=== PATIENT | female | born 1960 | race Two or more races ===

== ENCOUNTER 2022-09-05 14:12 | Emergency (ER) | payer MEDICAID ==
[~2022-09-05] VITALS: Ht 149.9 cm; Wt 80.1 kg
[2022-09-05] MEDS ORDERED: HYDROcodone-ACET 10/325MG TAB PO ONE (16:15)
[2022-09-05] MEDS ORDERED: IBUP800T27 PO (17:29)
[2022-09-05] MEDS ORDERED: CYCL-839 PO (17:29)
[2022-09-05 18:16] VITALS: BP 175/77
== END 2022-09-05 18:17 | disposition home or self-care (01) ==
LOC: ER 14:12
DX: S33.5XXA Sprain of ligaments of lumbar spine, initial encounter (principal); M47.817 Spondylosis without myelopathy or radiculopathy, lumbosacral region; I10 Essential (primary) hypertension; M54.2 Cervicalgia; M79.18 Myalgia, other site; Z88.1 Allergy status to other antibiotic agents; X58.XXXA Exposure to other specified factors, initial encounter; Y93.89 Activity, other specified; Y92.89 Other specified places as the place of occurrence of the external cause; Y99.8 Other external cause status
CPT/HCPCS: 70450; 72125; 72131

== ENCOUNTER 2022-09-16 19:54 | Emergency (ER) | payer MEDICAID ==
[~2022-09-16] VITALS: Ht 149.9 cm; Wt 80.1 kg
[~2022-09-16 19:54] MED LIST: CYCL-839 PO; IBUP800T27 PO
[2022-09-16] MEDS ORDERED: hydrALAZINE HCL 20 MG/ML VL IV ONE (20:30)
[2022-09-16 21:52] LABS: Basophils # (auto) 0.1 10 ^3/uL (0-0.2); Basophils % (auto) 0.5 % (0.0-2.0); Eosinophils # (auto) 0.3 10 ^3/uL (0-0.8); Eosinophils % (auto) 2.9 % (0.0-7.0); Hematocrit 37.9 % (36.0-46.0); Lymphocytes # (auto) 4.2 10 ^3/uL (0.4-5.4); Lymphocytes % (auto) 37.7 % (10.0-50.0); Mean Corpuscular Hemoglobin 29.9 pg (28.0-32.0); Mean Corpuscular Hgb Conc. 34.2 g/dL (32.0-36.0); Mean Corpuscular Volume 87.3 fL (80.0-100.0); Monocytes # (auto) 0.6 10 ^3/uL (0-1.3); Monocytes % (auto) 5.5 % (0.0-12.0); Neutrophils % (auto) 53.4 % (37.0-80.0); Nucleated Red Blood Cells % 0.2 %; Red Blood Cells 4.34 10^6/uL (4.0-5.20); Red Cell Distribution Width 13.8 % (11.8-14.3); White Blood Cell 11.3 10^3/uL (4.4-10.8)
[2022-09-16 22:05] LABS: Albumin 3.6 g/dL (3.4-5.0); Calcium 9.1 mg/dL (8.5-10.1); Potassium 3.8 mmol/L (3.5-5.1)
[2022-09-16 22:06] LABS: BUN/Creatinine Ratio 17.4 (10.0-20.0)
[2022-09-16 22:08] LABS: Bilirubin, Total 0.3 mg/dL (0.2-1.0); Total Protein 7.6 g/dL (6.4-8.2)
[2022-09-16 22:55] LABS: Urine Bacteria NONE SEEN /hpf (None Seen); Urine Blood Negative /uL (Negative); Urine Specific Gravity 1.009 (1.001-1.035); Urine WBC <1 /hpf (0 - 5)
[2022-09-17] VITALS: BP 177/87
[2022-09-17] MEDS ORDERED: AML5T PO (01:06)
== END 2022-09-17 01:34 | disposition home or self-care (01) ==
LOC: ER 19:54
DX: I10 Essential (primary) hypertension (principal); R51.9 Headache, unspecified; Z20.822 Contact with and (suspected) exposure to COVID-19; Z88.1 Allergy status to other antibiotic agents
CPT/HCPCS: 36415; 70450; 71045; 80053; 81001; 83880; 84484; 85025; 87426; 87804; 93005; 96374; 99285; J0360

== ENCOUNTER 2024-08-06 00:58 | Emergency (ER) | payer MEDICAID ==
[~2024-08-06] VITALS: Ht 152.4 cm; Wt 91.4 kg
[~2024-08-06 00:58] MED LIST changes: +AML5T PO; +IBUP-1456 PO; -IBUP800T27 PO
--- NOTE | 2024-08-06 01:20 | ED.PDOC ---
History of Present Illness HPI Comments 64-year-old female who came to ER for high blood pressure. Patient has history of hypertension and dyslipidemia. Patient states she is normally medication compliant, but the past few days she has not been compliant due to familial concerns. Complaining of headaches and dizziness. Denies any chest pains. U mitzi arrival blood pressure was 218/108 mm Hg Chief Complaint: High Blood Pressure Time Seen by MD: 01:20 Reviewed Notes: Nurses Notes Allergies: Coded Allergies: Azithromycin (Verified Allergy, Unknown, 09/05/22) Home Meds Active Scripts Clonidine Hydrochloride (Clonidine Hcl) 0.2 Mg Tab, 1 TAB PO BIDP PRN, #20 TAB 0 Refills To be used if systolic pressures above 160 or diastolic pressures above 90. Prov:RADHA SANCHEZ PAC 08/06/24 Amlodipine Besylate (NORVASC TABLET) 5 Mg Tb, 1 TAB PO DAILY, #15 TAB 5 Refills Prov:LASHAUN CHILDERS MATERIAL EXPEDITOR 09/17/22 Cyclobenzaprine Hcl (Cyclobenzaprine Hcl) 10 Mg Tab, 10 MG PO TID for 10 Days, #30 TAB Prov:ALEX MARIN CUSTOMER SERVICE ADVISOR 09/05/22 Ibuprofen (Ibuprofen) 800 Mg Tab, 1 TAB PO TID, #30 TAB Prov:ALEX MARIN CUSTOMER SERVICE ADVISOR 09/05/22 Information Source: Patient Mode of Arrival: Ambulatory Severity: Moderate Timing: Days Duration: Intermittent Prehospital treatment: None Past Medical History PAST MEDICAL HISTORY: High Lipids, HTN Surgical History: Denies all surgeries B OPERATOR History: Denies all B OPERATOR Hx Family History Family History: Reviewed,noncontributory to illness Social History Smoker: Non-Smoker Alcohol: Rarely Drugs: Denies Drug Use Lives In: Home Constitutional: denies: chills, diaphoresis, fatigue, fever, malaise, sweats, weakness, others EENTM: denies: blurred vision, double vision, ear bleeding, ear discharge, ear drainage, ear pain, ear ringing, eye pain, eye redness, hearing loss, mouth pain, mouth swelling, nasal discharge, nose bleeding, nose congestion, nose pain, photophobia, tearing, throat pain, throat swelling, voice changes, others Respiratory: denies: cough, hemoptysis, orthopnea, SOB at rest, shortness of breath, SOB with excertion, stridor, wheezing, others Cardiovascular: denies: chest pain, dizzy spells, diaphoresis, Dyspnea on exertion, edema, irregular heart beat, left arm pain, lightheadedness, palpitations, PND, syncope, others Gastrointestinal: denies: abdomen distended, abdominal pain, blood streaked bowels, constipated, diarrhea, dysphagia, difficulty swallowing, hematemesis, melena, nausea, poor appetite, poor fluid intake, rectal bleeding, rectal pain, vomiting, others Genitourinary: denies: abnormal vagina bleeding, burning, dyspareunia, dysuria, flank pain, frequency, hematuria, incontinence, pain, , vagina discharge, urgency, others Neurological: reports: dizziness, headache; denies: fainting, left sided numbness, left sided weakness, numbness, paresthesia, pre-existing deficit, right sided numbness, right sided weakness, seizure, speech problems, tingling, tremors, weakness, others Musculoskeletal: denies: back pain, gout, joint pain, joint swelling, muscle pain, muscle stiffness, neck pain, others Integumetry: denies: bruises, change in color, change in hair/nails, dryness, laceration, lesions, lumps, rash, wounds, others Allergic/Immunocompromised: denies: Difficulty Healing, Frequent Infections, Hives, Itching, others Hematologic/Lymphatic: denies: anemia, blood clots, easy bleeding, easy bruising, swollen glands, others Endocrine: denies: excessive hunger, excessive sweating, excessive thirst, excessive urination, flushing, intolerance to cold, intolerance to heat, unexplained weight gain, unexplained weight loss, others Psychiatric: denies: anxiety, bipolar disorder, depression, hopeless, panic disorder, schizophrenia, sleepless, suicidal, others Physical Exam General Appearance: Mild Distress (Moderate distress due to a mild headache and very mild dizziness concerns.), Normal HEENT: Head (Unremarkable cranial evaluation. No signs of trauma. No skull depressions or deformities.), Normal ENT Inspection, Pharynx Normal, TMs Normal Neck: Full Range of Motion, Non-Tender, Normal, Normal Inspection Respiratory: Chest Non-Tender, Lungs Clear, No Accessory Muscle Use, No Respiratory Distress, Normal Breath Sounds Cardiovascular: No Edema, No JVD, No Murmur, No Gallop, Normal Peripheral Pulses, Regular Rate/Rhythm Breast Exam: Deferred Gastrointestinal: No Organomegaly, Non Tender, No Pulsatile Mass, Normal Bowel Sounds, Soft Genitalia: Deferred Pelvic: Deferred Rectal: Deferred Extremities: No calf tenderness, Normal capillary refill, Normal inspection, Normal range of motion, Non-tender, No pedal edema Musculoskeletal : Apperance: Normal Neurologic: Alert, No Motor Deficits, Normal Affect, Normal Mood, No Sensory Deficits Cerebellar Function: Normal Reflexes: Normal Skin: Dry, Normal Color, Warm Lymphatic: No Adenopathy Was a procedure done? Was a procedure done?: No Differential Dx Considerations may include: Hypertensive urgency, anxiety X-Ray, Labs, Meds, VS Comment Patient responded well to medication dispensed. Advised patient to always use her blood pressure medication as directed. I will send the patient home with some emergent blood pressure medication, but she should follow up with the primary care provider for conversation is related to healthy blood pressure management. At time of discharge, patient stated she had urinary complaints as well. Urinalysis has been ordered and patient care will be transferred to Dr. Martin for evaluation of those results when returned. Time of 1ST Reevaluation: 01:40 Reevaluation 1ST: Improved Consultation: PCP, Cardiology Patient Education/Counseling: Diagnosis, Treatment Family Education/Counseling: Diagnosis, Treatment, No Family Present Departure 1 Departure Time of Disposition: 01:40 Impression: Primary Impression: Hypertension Disposition: 01 HOME / SELF CARE / HOMELESS Condition: Stable Additional Instructions: Advised patient to always utilize her blood pressure medication as directed by her primary care provider. Utilize emergent medication as needed. Follow up with the primary care provider for discussions related to improved blood pressure management. e-Prescriptions Clonidine Hydrochloride (Clonidine Hcl) 0.2 Mg Tab 1 TAB PO BIDP PRN, #20 TAB 0 Refills To be used if systolic pressures above 160 or diastolic pressures above 90. Prov: RADHA SANCHEZ PAC 08/06/24 Discharged With: Self, Friend Critical Care Note Critical Care Time?: No Stability Stability form required: No Heart Score Heart Score: Heart Score Response (Comments) Value History N/A 0 EKG N/A 0 Age N/A 0 Risk Factors N/A 0 Troponin N/A 0 Total 0 I personally scribed for RADHA SANCHEZ PAC ([email or web address]) on 08/06/24 at 01:20. Electronically submitted by Rob Subramanian ([facility]). RADHA SANCHEZ PAC Aug 06, 2024 01:20
[2024-08-06] MEDS ORDERED: CLON0.2T PO (01:41)
[2024-08-06] MEDS: cloNIDine HCL 0.1 MG TAB PO ONE (01:50)
[2024-08-06 02:06] LABS: Urine Bacteria None Seen /hpf (None Seen)
[2024-08-06 02:20] LABS: Urine Blood Negative /uL (Negative); Urine Clarity Clear (Clear); Urine Color Colorless (Yellow); Urine Protein, UAD Negative (Negative); Urine Specific Gravity 1.008 (1.001-1.035); Urine Squamous Epithelial Cell FEW /hpf (<5); Urine Urobilinogen Normal (Negative); Urine pH 6.5 (5.0-9.0)
[2024-08-06 03:03] VITALS: BP 102/60; PULSE 68; RESP 20; TEMP 98; O2SAT 98
== END 2024-08-06 03:17 | disposition home or self-care (01) ==
LOC: ER 00:58
DX: I10 Essential (primary) hypertension (principal); E78.5 Hyperlipidemia, unspecified; Z88.1 Allergy status to other antibiotic agents; Z79.899 Other long term (current) drug therapy
CPT/HCPCS: 81001

== ENCOUNTER 2024-10-20 10:46 | Emergency (ER) | payer MEDICAID ==
[~2024-10-20] VITALS: Ht 152.4 cm; Wt 89.6 kg
[~2024-10-20 10:46] MED LIST changes: +CLON0.2T PO
--- NOTE | 2024-10-20 11:51 | DVH ---
CHEST RADIOGRAPH Indication: cp, htn Technique: Single frontal view of the chest was obtained COMPARISON: XY CHEST XRAY 1 VIEW on DOS: 09/16/22 FINDINGS: Lines and Tubes: None Lungs: Clear Pleura: No effusion. No pneumothorax. Cardiomediastinal contours: Unremarkable Bones: Unremarkable IMPRESSION: No acute disease.
[2024-10-20 12:14] LABS: Basophils # (auto) 0.1 10 ^3/uL (0-0.2); Basophils % (auto) 0.8 % (0.0-2.0); Eosinophils # (auto) 0.2 10 ^3/uL (0-0.8); Eosinophils % (auto) 1.6 % (0.0-7.0); Hematocrit 37.8 % (36.0-46.0); Hemoglobin 12.7 g/dL (12.2-16.2); Lymphocytes # (auto) 2.6 10 ^3/uL (0.4-5.4); Lymphocytes % (auto) 21.9 % (10.0-50.0); Mean Corpuscular Hemoglobin 28.5 pg (28.0-32.0); Mean Corpuscular Hgb Conc. 33.6 g/dL (32.0-36.0); Mean Corpuscular Volume 84.7 fL (80.0-100.0); Monocytes # (auto) 0.6 10 ^3/uL (0-1.3); Monocytes % (auto) 5.2 % (0.0-12.0); Neutrophils # (auto) 8.3 10 ^3/uL (1.6-8.6); Neutrophils % (auto) 70.5 % (37.0-80.0); Platelet Count (auto) 451 10^3/uL (140-450); Red Blood Cells 4.47 10^6/uL (4.0-5.20); Red Cell Distribution Width 14.1 % (11.8-14.3); White Blood Cell 11.8 10^3/uL (4.4-10.8)
[2024-10-20 12:30] LABS: Alanine Aminotransferase 25 U/L (7-40); Albumin 4.7 g/dL (3.2-4.8); Anion Gap 8 (5-15); Aspartate Aminotransferase 15 U/L (13-40); BUN/Creatinine Ratio 14.1 (10.0-20.0); Bilirubin, Total 0.4 mg/dL (0.2-1.0); Blood Urea Nitrogen 12 mg/dL (9-23); Calcium 9.9 mg/dL (8.7-10.4); Carbon Dioxide 25 mmol/L (20-31); Chloride 105 mmol/L (98-107); Potassium 4.2 mmol/L (3.5-5.1); Sodium 138 mmol/L (136-145); Total Protein 8.1 g/dL (5.7-8.2)
[2024-10-20 12:32] LABS: Alkaline Phosphatase 137 U/L (46-116); Glucose 110 mg/dL (74-106)
--- NOTE | 2024-10-20 13:14 | ED.PDOC ---
HPI Comments Patient denies any headache, blurry vision or speech changes, facial droop, chest pain, shortness of breath, or other associated symptoms or modifying factors at this time. Vitals: temperature of 98.7F, pulse rate of 83, respiratory rate of 19, blood pressure of 133/77, and a SpO2 of 98%RA Past medical history: HTN, HLD, obesity Past surgical history: denies HPI: Poor Historian. 64-year-old female presents emergency department for evaluation of hypotensive e pisode the found at the dentist's office today on incidental check. Patient states she has some associated mild dizziness with the. Coincidentally she also voices having left shoulder pain for the last four days that is worse with certain movement of the arm. Denies any fall or trauma or injury. Her dentist office sent her here for evaluation of hypertension. Systolic blood pressure was in the 170s at the office. Patient states having history of hypertension and states compliance with her medications. REVIEW OF SYSTEMS: CONSTITUTIONAL: Denies acute: fever, diaphoresis, chills, generalized weakness. HEAD: Denies acute: headache, photophobia Eyes: Denies acute: Double vision, vision loss, eye pain, eye discharge. EARS: Denies acute: tinnitus, hearing loss, ear discharge, ear pain, THROAT: Denies acute: sore throat, swelling, difficulty swallowing , pain with swallowing, change in voice. NECK: Denies acute: neck pain, neck swelling, stiff neck. HEART: Denies acute : chest pain, palpitations, LUNGS: Denies acute: SOB, wheezing, cough, hemoptysis ABDOMEN: Denies acute: abdominal pain, Nausea, Vomiting, diarrhea, melena , hematemesis, hematochezia SKIN: Denies acute: rash, redness, lesions, itchiness. EXTREMITIES: Denies acute: calf pain, numbness, tingling, weakness, Denies acute: Low back pain. Neuro: Denies acute: focal neurological deficit, motor or sensory focal neurological deficit, tremors, seizure like activity, confusion, dizziness, change in mental status, loss of bowel or bladder function, cauda equina like symptoms. : Denies acute: dysuria, hematuria, flank pain, increase in urinary frequency. PSYCH: Denies acute: hallucination, suicidal ideation, homicidal ideation. FEMALE: Denies acute: abnormal vaginal bleeding, foul odor, unusual discharge. PHYSICAL EXAM: General: ----no----acute distress, awake and alert. Head: normocephalic, atraumatic. Neck: supple, trachea is midline, no swelling. Throat: Normal phonation. Eyes:, no erythema, no purulent discharge, no proptosis, no icterus. Heart: regular rate, regular rhythm, no significant murmur appreciated. Lungs: no apparent respiratory distress, Able to speak in full sentences. No wheezing, no rhonchi, no crackles. No stridors Clear to auscultation bilaterally. Abdomen: non tender to palpation, non distended, soft, no guarding, no rebound, + bowel sounds. Obese Neuro: Awake, Alert, oriented to name, self, situation, follows commands GCS=15. Speech is normal. Skin: no petechia, no purpura, no cyanosis, non-pale, not jaundice. Lower extremities: --no - Pitting edema no deformity, no focal swelling, no calf TTP. Makes eye contact. moves all four extremities. Face: no apparent facial droop. Ambulating in the ED independently. ED COURSE: Chief Complaint: High Blood Pressure Time Seen by MD: 11:20 Reviewed Notes: Nurses Notes, Medications, Allergies Allergies: Coded Allergies: Azithromycin (Verified Allergy, Unknown, 09/05/22) Home Meds Active Scripts Clonidine Hydrochloride (Clonidine Hcl) 0.2 Mg Tab, 1 TAB PO BIDP PRN, #20 TAB 0 Refills To be used if systolic pressures above 160 or diastolic pressures above 90. Prov:RADHA SANCHEZ PAC 08/06/24 Amlodipine Besylate (NORVASC TABLET) 5 Mg Tb, 1 TAB PO DAILY, #15 TAB 5 Refills Prov:LASHAUN CHILDERS MANAGER OF PRODUCT 09/17/22 Cyclobenzaprine Hcl (Cyclobenzaprine Hcl) 10 Mg Tab, 10 MG PO TID for 10 Days, #30 TAB Prov:ALEX MARIN WWE WRESTLER 09/05/22 Ibuprofen (Ibuprofen) 800 Mg Tab, 1 TAB PO TID, #30 TAB Prov:ALEX MARIN WWE WRESTLER 09/05/22 Information Source: Patient Mode of Arrival: Ambulatory Past Medical History PAST MEDICAL HISTORY: High Lipids, HTN Surgical History: Denies all surgeries DECORATIVE GREENS CUTTER History: Denies all DECORATIVE GREENS CUTTER Hx Family History Family History: Reviewed,noncontributory to illness Social History Smoker: Non-Smoker Alcohol: Rarely Drugs: Denies Drug Use Lives In: Home EKG EKG : Pulse Rate (adult): 83 [place]: Normal Cardiac Rhythm: NSR Block: None Hypertrophy: None ST: Normal Was a procedure done? Was a procedure done?: No CP Differential Dx Differential Diagnosis: N/A Differential Diagnosis: Other (DDX include renal disease, thyroid disease, electrolyte abnormality, increased salt intake, medications non-compliance, undiagnosed HTN, Hypertensive crisis, hypertensive urgency., drug toxicity.) X-Ray, Labs, Meds, VS Vital Signs Date Time Temp Pulse Resp B/P (MAP) Pulse Ox O2 Delivery O2 Flow Rate FiO2 10/20/24 15:29 97.7 76 16 149/69 (95) 96 97.7 10/20/24 15:29 76 16 96 Room Air 10/20/24 13:14 83 10/20/24 11:18 98.7 83 19 133/77 (95) 98 98.7 10/20/24 11:18 83 Lab Test 10/20/24 14:52 10/20/24 13:01 10/20/24 11:51 Range/Units Troponin I High Sensitivity 6 6 6 </=34 ng/L White Blood Count 11.8 H 4.4-10.8 10^3/uL Red Blood Count 4.47 4.0-5.20 10^6/uL Hemoglobin 12.7 12.2-16.2 g/dL Hematocrit 37.8 36.0-46.0 % Mean Corpuscular Volume 84.7 80.0-100.0 fL Mean Corpuscular Hemoglobin 28.5 28.0-32.0 pg Mean Corpuscular Hemoglobin Concent 33.6 32.0-36.0 g/dL Red Cell Distribution Width 14.1 11.8-14.3 % Platelet Count 451 H 140-450 10^3/uL Mean Platelet Volume 7.0 6.9-10.8 fL Neutrophils (%) (Auto) 70.5 37.0-80.0 % Lymphocytes (%) (Auto) 21.9 10.0-50.0 % Monocytes (%) (Auto) 5.2 0.0-12.0 % Eosinophils (%) (Auto) 1.6 0.0-7.0 % Basophils (%) (Auto) 0.8 0.0-2.0 % Neutrophils # (Auto) 8.3 1.6-8.6 10 ^3/uL Lymphocytes # (Auto) 2.6 0.4-5.4 10 ^3/uL Monocytes # (Auto) 0.6 0-1.3 10 ^3/uL Eosinophils # (Auto) 0.2 0-0.8 10 ^3/uL Basophils # (Auto) 0.1 0-0.2 10 ^3/uL Nucleated Red Blood Cells 0.0 % Sodium Level 138 136-145 mmol/L Potassium Level 4.2 3.5-5.1 mmol/L Chloride Level 105 98-107 mmol/L Carbon Dioxide Level 25 20-31 mmol/L Anion Gap 8 5-15 Blood Urea Nitrogen 12 9-23 mg/dL Creatinine 0.85 0.550-1.02 mg/dL Glomerular Filtration Rate Calc 77 >90 mL/min BUN/Creatinine Ratio 14.1 10.0-20.0 Serum Glucose 110 H 74-106 mg/dL Calcium Level 9.9 8.7-10.4 mg/dL Total Bilirubin 0.4 0.2-1.0 mg/dL Aspartate Amino Transferase (AST) 15 13-40 U/L Alanine Aminotransferase (ALT) 25 7-40 U/L Alkaline Phosphatase 137 H 46-116 U/L Total Protein 8.1 5.7-8.2 g/dL Albumin 4.7 3.2-4.8 g/dL [place] [id number] Ph: [phone] DIAGNOSTIC IMAGING Diagnostic Imaging Report : [id number] Signed PATIENT: JAIRO HORTA ACCT: [id number] UNIT: [id number] : 1960 LOC: ER ROOM / BED: / AGE / SEX: 64 / F ADM STATUS: REG ER SERVICE 1121 ORDERING PHYSICIAN: MICHAEL LINDSEY DO PROCEDURE(s): CXRP - CHEST PORTABLE REASON: cp, htn ORDER NUMBER(s): [id number], ACCESSION NUMBER(s): [id number] CHEST RADIOGRAPH Indication: cp, htn Technique: Single frontal view of the chest was obtained COMPARISON: XY CHEST XRAY 1 VIEW on DOS: 09/16/22 FINDINGS: Lines and Tubes: None Lungs: Clear Pleura: No effusion. No pneumothorax. Cardiomediastinal contours: Unremarkable Bones: Unremarkable IMPRESSION: No acute disease. ATED BY: MARCOS WHEATLEY MD DICTATED DATE/TIME: 10/20/24 1148 SIGNED BY: MARCOS WHEATLEY MD SIGNED DATE/TIME: 10/20/24 1148 CC: Time of 1ST Reevaluation: 11:20 Reevaluation 1ST: Unchanged Patient Education/Counseling: Diagnosis, Treatment Family Education/Counseling: No Family Present Comments Patient presented with the above HPI.---hypertension---workup was initiated. patient was found with the above mentioned diagnosis. the following medications were ordered: please refer to order lists of meds and tests obtained by myself Dr. Lindsey. Patient ED course and VS have been stabilized. Patient has been reassessed in the ED and remained in a stable condition. Pertinent incidental findings were discussed with the patient and/or family. Patient/family voices understanding and is agreeable with plan. Patient has been observed in the ED adequate length of time to insure improvement/stability. Escalation of care considered: Consideration of escalation to observation or admission Patient's vital signs here were stable. Her hypertensive episode that happened at the dentist office has already resolved prior to my evaluation. Patient was DISCHARGED home in a stable condition. All the reports of any imaging studies that were ordered by myself were reviewed by myself. Departure 1 Departure Time of Disposition: 14:05 Impression: Primary Impression: Hypertension Disposition: 01 HOME / SELF CARE / HOMELESS Condition: Stable Additional Instructions: Additional instructions: You MUST follow-up with your primary care/family doctor in 1 to 2 days. If you are unable to see your primary care/family doctor, please return to our emergency room for re-assessment and re-evaluation in 1 to 2 days. Return to the emergency room here in our facility or to the nearest ER [facility] if your symptoms change or worsen. CONSULTATIONS: you MUST Follow-up for consultation as soon as possible with: -cardiology in 1-2 days. You MUST call the consultants office yourself to make an appointment. You may need to arrange that through your insurance and/or your primary/family doctor. If you are unable to see the small business consultant in 1 to 2 days, you must return to our emergency room (or any other ER of your choice) for re-assessment and re- evaluation. Adequate fluid hydration. Monitor your blood pressure at home at least 3 times a day. Discharged With: Self Critical Care Note Critical Care Time?: No I personally scribed for MICHAEL LINDSEY DO ([email or web address]) on 10/20/24 at 13:14. Electronically submitted by Mike Houser ([email or web address]). I personally scribed for MICHAEL LINSDEY DO ([email or web address]) on 10/20/24 at 13:19. Electronically submitted by Mike Houser ([email or web address]). MICHAEL LINDSEY DO Oct 20, 2024 13:14
[2024-10-20 15:29] VITALS: BP 149/69; PULSE 76; RESP 16; TEMP 97.7; O2SAT 96
--- NOTE | 2024-10-20 18:16 | ECG ---
[facility] Test Date: 2024-10-20 Test Time: 11:18:13 Pat Name: JAIRO HORTA Department: ED Room: Gender: F Grey Inspector: jose : 1960 Requested By: MICHAEL LINDSEY Order Number: [id number] Reading MD: Patricio Beaver Measurements Intervals [place] Rate: 83 P: 50 DE: 146 QRS: 25 QRSD: 92 T: 58 QT: 385 QTc: 453 Interpretive Statements Sinus rhythm Low voltage, precordial leads Electronically Signed On 10-22-2024 20:28:33 PDT by Patricio Beaver Please click the below link to view image of tracing.
== END 2024-10-20 15:32 | disposition home or self-care (01) ==
LOC: ER 10:46
DX: I10 Essential (primary) hypertension (principal); M25.512 Pain in left shoulder; E78.5 Hyperlipidemia, unspecified; Z79.899 Other long term (current) drug therapy; Z88.1 Allergy status to other antibiotic agents
CPT/HCPCS: 36415; 71045; 80053; 84484; 85025; 93005